=== PATIENT | female | born 1985 | race Caucasian/White ===

== ENCOUNTER 2017-12-20 19:01 | Emergency (ER) | payer OTHER ==
[~2017-12-20] VITALS: Ht 157.5 cm; Wt 79.8 kg
[2017-12-20 19:05] VITALS: Ht 157.5 cm; Wt 79.8 kg
[2017-12-20 21:04] VITALS: BP 106/71
[2017-12-20 21:17] LABS: UA SPECIFIC GRAVITY 1.015 (1.005-1.035); microscopic required? YES; urine erythrocyte NEGATIVE (NEGATIVE)
== END 2017-12-20 21:04 | disposition home or self-care (01) ==
LOC: ED 19:01
PROVIDERS: Specialist
DX: O23.43 Unspecified infection of urinary tract in pregnancy, third trimester (principal); Z3A.34 34 weeks gestation of pregnancy

== ENCOUNTER 2019-09-20 12:35 | Emergency (ER) | payer MEDICAID ==
[~2019-09-20] VITALS: Ht 162.6 cm; Wt 68.0 kg
[2019-09-20 13:01] VITALS: Ht 162.6 cm; Wt 68.0 kg
[2019-09-20 16:19] VITALS: BP 102/65
== END 2019-09-20 16:19 | disposition home or self-care (01) ==
LOC: ED 12:35
DX: M62.830 Muscle spasm of back (principal); Z90.89 Acquired absence of other organs
CPT/HCPCS: 20552; J1885; J2001; J2270; Q0162